=== PATIENT | male | born 1970 | race Caucasian/White ===

== ENCOUNTER 2017-10-25 10:58 | Emergency (ER) | payer OTHER ==
[~2017-10-25] VITALS: Ht 157.5 cm; Wt 76.0 kg
[~2017-10-25 10:58] MED LIST: PANT40TA3 PO
[2017-10-25 11:10] VITALS: Ht 157.5 cm; Wt 76.0 kg
[2017-10-25] MEDS ORDERED: SOD CHLORIDE 0.9% 1,000 ML IV STA (12:58)
--- NOTE | 2017-10-25 13:05 | ERD ---
ER Documentation Chief Complaint Chief Complaint ap x 5 days HPI This is a 47-year-old male that presents to the emergency department complaining of intermittent abdominal pain for 5 years. The patient indicated that 3 years ago he underwent a significant workup with colonoscopy due to the pain that have been intermittent in the right lower quadrant. He indicated the findings were benign. However the patient states that 5 days ago he underwent a significant stress in his life and then he noticed that he started to develop severe pain in his right lower quadrant that has been persistent for 5 days. He has had no fevers or shaking or chills. He denies any frequency urgency or dysuria. He denies any gross hematuria. He does indicate that the pain was exacerbated after drinking alcohol. He has not taken any analgesic medication. He states the pain is a sharp shooting pain. The pain does not radiate to his back. He denies any testicular pain. He also noticed abdominal distention but has been passing flatulence with no constipation or diarrhea. Any weight loss. He denies any recent travel. He has no chest pain or pressure that radiates the neck arm back or jaw appear ROS All systems reviewed and are negative except as per history of present illness. Medications Home Meds Discontinued Scripts Pantoprazole* (Protonix*) 40 Mg Tablet., 40 MG PO DAILY, #20 TAB Prov:DORIS MANRIQUE MD 04/09/15 Allergies Allergies: Coded Allergies: No Known Allergy (Unverified , 10/25/17) PMhx/Soc History of Surgery: Yes (Right Lower Leg Surgery) Anesthesia Reaction: No Hx Neurological Disorder: No Hx Respiratory Disorders: No Hx Cardiac Disorders: No Hx Psychiatric Problems: No Hx Miscellaneous Medical Probl: Yes (DM,GERD) Hx Alcohol Use: No Hx Substance Use: No Hx Tobacco Use: No Physical Exam Vitals Vital Signs Date Time Temp Pulse Resp B/P Pulse Ox O2 Delivery O2 Flow Rate FiO2 10/25/17 11:10 98.1 72 18 135/72 99 Physical Exam Constitutional:Well-developed. Well-nourished. HEENT:Normocephalic. Atraumatic.Pupils were equal round reactive to light. Moist mucous membranes.No tonsillar exudates. Neck: No nuchal rigidity. No lymphadenopathy. No posterior cervical spine tenderness or step-offs. Respiratory: Not using accessory muscles of respiration.Lungs were clear to auscultation bilaterally. No rhonchi. No rales. No wheezing. Cardiovascular: Regular rate regular rhythm.No murmurs. No rubs were appreciated.S1, S2 normal. Distal pulses are palpable 2+ bilaterally. GI: Abdomen was soft. Tenderness in the left and right lower quadrant nonspecific over McBurney's point. Psoas sign negative. Obturator sign negative. Non Distended. No pulsatile abdominal masses or bruits. No rebound. No guarding. Bowel sounds were present and normal. Muscle skeletal: Full range of motion of both the upper and lower extremities bilaterally.Normal muscle tone.No assymetrical calf tenderness or swelling. Skin: No petechia, no purpura. No lesions on the palms or the soles of the feet. No maculopapular rash. NEURO: Patient was alert, awake, orientated x3.No facial droop. Gait observed and normal with no ataxia.Speech had regular rate and rhythm. No focal neurological deficits. Result Diagram: 10/25/17 1310 10/25/17 1310 Results 24 hrs Laboratory Tests Test 10/25/17 13:10 White Blood Count 8.410^3/ul Red Blood Count 5.3010^6/ul Hemoglobin 14.5g/dl Hematocrit 44.4% Mean Corpuscular Volume 83.8fl Mean Corpuscular Hemoglobin 27.4pg Mean Corpuscular Hemoglobin Concent 32.7g/dl Red Cell Distribution Width 13.2% Platelet Count 55899^3/UL Mean Platelet Volume 10.3fl Neutrophils % 69.9% Lymphocytes % 20.5% Monocytes % 8.0% Eosinophils % 0.6% Basophils % 0.5% Nucleated Red Blood Cells % 0.0/100WBC Neutrophils # 5.910^3/ul Lymphocytes # 1.710^3/ul Monocytes # 0.710^3/ul Eosinophils # 0.110^3/ul Basophils # 0.010^3/ul Nucleated Red Blood Cells # 0.010^3/ul Prothrombin Time 12.8Sec Prothrombin Time Ratio 1.0 INR International Normalized Ratio 0.95 Activated Partial Thromboplast Time 26.9Sec Sodium Level 140mmol/L Potassium Level 5.1mmol/L Chloride Level 102mmol/L Carbon Dioxide Level 28mmol/L Anion Gap 15 Blood Urea Nitrogen 17mg/dl Creatinine 1.04mg/dl Glucose Level 103mg/dl Calcium Level 9.5mg/dl Total Bilirubin 0.6mg/dl Direct Bilirubin 0.00mg/dl Indirect Bilirubin 0.6mg/dl Aspartate Amino Transf (AST/SGOT) 22IU/L Alanine Aminotransferase (ALT/SGPT) 37IU/L Alkaline Phosphatase 61IU/L Troponin I < 0.012ng/ml Total Protein 7.9g/dl Albumin 4.5g/dl Globulin 3.40g/dl Albumin/Globulin Ratio 1.32 Amylase Level 96U/L Lipase 74U/L Current Medications Medications (Trade) Dose Ordered Sig/Renee Route PRN Reason Start Time Stop Time Status Last Admin Dose Admin Sodium Chloride (NS) 1,000 ml @ 1,000 mls/hr Q1H STAT IV 10/25/17 12:58 10/25/17 13:57 DC 10/25/17 13:47 IV Flush 10 ml 10 ml STK-MED ONCE .ROUTE 10/25/17 13:55 10/25/17 13:56 DC 10/25/17 14:04 Sodium Chloride (NS) 100 ml @ ud STK-MED ONCE .ROUTE 10/25/17 13:55 10/25/17 13:56 DC 10/25/17 14:06 Iohexol (Omnipaque 300mg/ ml) 150 ml STK-MED ONCE .ROUTE 10/25/17 13:55 10/25/17 13:56 DC 10/25/17 14:06 Procedures/MDM This patient presented to the emergency department with abdominal pain and was seen and evaluated by myself. My differential diagnosis included but was not limited to abdominal aortic aneurysm, appendicitis, pancreatitis, perforated peptic ulcer, perforated viscus, Boerhaaves syndrome or visceral pain such as diverticulitis, DKA, esophagitis, hepatitis or bowel obstruction. The patient was placed on a clinical research monitor, continuous pulse oximetry, and IV access was established by nursing staff. Patient received IV Toradol I obtained a 12-lead EKG tracing to rule out atypical myocardial infarction. 12 Lead EKG tracing ordered and reviewed by myself showed: Sinus bradycardia 52 bpm and no arrhythmia. MI interval normal. QRS duration normal. No ST segment elevation. MI depression with possible acute pericarditis patient 's symptoms did not suggest this and had no pleural friction rub. No ST segment depression. No changes consistent with acute ischemia. I obtained a CT scan of the patient's abdomen which reviewed by the radiologist myself and indicated the patient had a rectal sigmoid colon diverticulosis with mild thickening of the jackson. This did clinically correlate with his physical exam findings. He had no leukocytosis and was afebrile. He was able to tolerate oral intake. The patient felt comfortable being discharged home with antibiotics which included ciprofloxacin and Flagyl for the next 10 days and Motrin to take if needed as needed The patient was discharged home in fair condition. They were instructed to return to the emergency department at any time if there was any worsening of their condition. The patient stated they would follow up with their PCP in the next 24-48 hours to initiate a suitable medication regimen under the care of their PCP as well as to allow their PCP to monitor any drug reactions. The patient was discharged home with prescriptions after they gave informed consent to the new medication. They were also fully informed by myself on the adverse effects and adverse drug interactions in order to provide adequate safeguards to prevent possible adverse reactions to medications. Departure Diagnosis: Primary Impression: Acute diverticulitis Condition: CHARISSE Bruno Oct 25, 2017 13:05
[2017-10-25 13:20] LABS: BASOPHILS % 0.5 % (0.0-2.0); EOSINOPHILS # 0.1 10^3/ul (0.0-0.5); EOSINOPHILS % 0.6 % (0.0-7.0); HEMATOCRIT 44.4 % (42.0-52.0); HEMOGLOBIN 14.5 g/dl (14.0-18.0); LYMPHOCYTES # 1.7 10^3/ul (0.8-2.9); LYMPHOCYTES % 20.5 % (15.0-51.0); MEAN CORPUSCULAR HEMOGLOBIN 27.4 pg (29.0-33.0); MEAN CORPUSCULAR HGB CONC 32.7 g/dl (32.0-37.0); MEAN CORPUSCULAR VOLUME 83.8 fl (82.0-101.0); MEAN PLATELET VOLUME 10.3 fl (7.4-10.4); MONOCYTE # 0.7 10^3/ul (0.3-0.9); NEUTROPHIL # 5.9 10^3/ul (1.6-7.5); NEUTROPHILS % 69.9 % (39.0-77.0); PLATELET COUNT 279 10^3/UL (140-415); RED CELL DISTRIBUTION WIDTH 13.2 % (11.5-14.5); WHITE BLOOD COUNT 8.4 10^3/ul (4.8-10.8)
[2017-10-25 13:35] LABS: INR 0.95; PARTIAL THROMBOPLASTIN TIME 26.9 Sec (25.0-35.0); PROTIME 12.8 Sec (11.9-14.9)
[2017-10-25 13:39] LABS: ALANINE AMINOTRANSFERASE 37 IU/L (13-69); ALBUMIN 4.5 g/dl (3.3-4.9); ALBUMIN/GLOBULIN RATIO 1.32; ALKALINE PHOSPHATASE 61 IU/L (42-121); AMYLASE 96 U/L (11-123); ANION GAP 15 (8-16); ASPARTATE AMINO TRANSFERASE 22 IU/L (15-46); BILIRUBIN,INDIRECT 0.6 mg/dl (0-1.1); BILIRUBIN,TOTAL 0.6 mg/dl (0.2-1.3); BLOOD UREA NITROGEN 17 mg/dl (7-20); CALCIUM 9.5 mg/dl (8.4-10.2); CARBON DIOXIDE 28 mmol/L (21-31); CHLORIDE 102 mmol/L (97-110); CREATININE 1.04 mg/dl (0.61-1.24); GLUCOSE 103 mg/dl (70-220); POTASSIUM 5.1 mmol/L (3.5-5.1); SODIUM 140 mmol/L (135-144); TOTAL PROTEIN 7.9 g/dl (6.1-8.1)
[2017-10-25 13:52] LABS: TROPONIN-I < 0.012 ng/ml (0.00-0.12)
[2017-10-25] MEDS ORDERED: SOD CHLORIDE 0.9% 100 ML ONE (13:55)
[2017-10-25] MEDS ORDERED: IOHEXOL 300MG/ML 150 ML BTL ONE (13:55)
--- NOTE | 2017-10-25 14:24 | RADRPT ---
PROCEDURE: CT ABDOMEN AND PELVIS WITH IV CONTRAST. CLINICAL INDICATION: Right lower quadrant abdominal pain TECHNIQUE: CT scan of the abdomen and pelvis without contrast was performed on a multidetector hig h-resolution CT scanner following the use of IV contrast. 100 cc Omnipaque-300 was administered. Cor onal and sagittal reformatted images were obtained from the axial source images. Images were reviewe d on a high-resolution PACS workstation. The total exam CTDI equals 14.0 mGy and the total exam DLP equals 898.4 mGy-cm. One or more of the following dose reduction techniques were used: Automated exposure control. Adjustment of the mA and/or kV according to patient size. Use of iterative reconstruction technique. DICOM images are available. COMPARISON: None FINDINGS: CT abdomen: The lungs are otherwise clear. The heart size is within normal limits. No significant pericardial ef fusion. Hepatic morphology is within normal limits. No gross masses or lesions. Gallbladder is unremarkable. No evidence of intrahepatic or extrahepatic biliary dilatation. The spleen and pancreas are within normal limits. Both adrenal glands are within normal limits. Both kidneys are in normal anatomic position. No evidence of obstruction or hydronephrosis. No gross renal/ureteric calculi. The visualized GI tract demonstrate normal caliber loops of small and large bowel. No evidence of tammy wel obstruction. The appendix is within normal limits. The aorta is unremarkable. No significant retroperitoneal lymphadenopathy. CT pelvis: The bladder is within normal limits. Prostate gland is normal size. The rectosigmoid colon demonstra te diverticulosis and mild thickening of the jackson. No significant free fluid. No significant pelvic lymphadenopathy. The visualized osseous structures, appears to be within normal limits. IMPRESSION: 1. No evidence of bowel obstruction. The appendix is within normal limits. 2. Mild thickening of the jackson of the sigmoid colon with multiple diverticuli. There may be underly ing borderline diverticulitis. Correlate with clinical findings. 3. No free fluid or free air. No gross focal fluid collections. 3. Otherwise, the remainder of the CT scan of the abdomen/pelvis is unremarkable. RPTAT: AAPP Physician Eliu Date Time Electronically viewed and signed by Physician Eliu on 10/25/2017 14:23 JL/
[2017-10-25] MEDS ORDERED: KETOROLAC 30 MG INJ IV STA (15:17)
[2017-10-25] MEDS ORDERED: METR500T14 PO (15:22)
[2017-10-25] MEDS ORDERED: IBUP800T25 PO (15:22)
[2017-10-25] MEDS ORDERED: CIPR500T21 PO (15:22)
[2017-10-25 16:04] VITALS: BP 125/74; PULSE 71; RESP 18
== END 2017-10-25 16:05 | disposition home or self-care (01) ==
LOC: E/R 10:58
DX: K57.32 Diverticulitis of large intestine without perforation or abscess without bleeding (principal); E11.9 Type 2 diabetes mellitus without complications; R42 Dizziness and giddiness
CPT/HCPCS: 74177; 80053; 82150; 83690; 84484; 85025; 85610; 85730; 96374; J1885; J7030; Q9967; Z7502; Z7610